=== PATIENT | male | born 1945 | race Caucasian/White ===

== ENCOUNTER 2018-02-15 17:45 | Inpatient (IN) ==
--- NOTE | 2018-02-15 17:57 | Emergency Department Note ---
Disposition Clinical Impression: Small bowel obstruction Disposition: Admitted As Inpatient Condition: Good [facility]: [facility] [Primary Care Provider[facility] - Nausea/Vomiting/Diarrhea HPI - General Stated complaint: small bowel obstruction - History of Present Illness HPI Narrative: 72 yo M c PMHx of CKD stage 3, Umbilical hernia, a fib on apixaban, HTN, HLD, CHF, Obesity who reports to the ED in transfer from [facility] for Small bowel obstruction. Patient reports symptoms began Thursday night while eating out at [employer]. He reports Nausea, chills, vomiting, and diarrhea. He reports a few episodes of emesis thursday night into thursday, but none since. He reports several episodes of diarrhea since then and presented to the [place] hospital this morning for evaluation. He was worked up with blood work which was unremarkable : Normal WBC, LFTs, lipase, amylase, BMP except Cr which is 1.47( baseline unknown, but has ckd) CT abdpalvis showed: "There are dilated small bowel loops throughout the abdomen with a possible transition point in the right anterior abdomen. The distal small bowel and coln are relatively collapsed. The appendix is normal in appearance." Patient was accepted by Dr. Gray for Transfer at 10:30 am but then [place] attempted to place him at another [place] instead, but were ultimatley unsuccesful, so now is here for admission and surgical evaluation. They attempted [address] an NG tube at the [place] but they were unsuccessful. Patient denies Abdominal pain throughout this episode. He reports he currently has no pain, no nausea, no fevers or chill. He denies hematochezia, or melena. He describes the diarrhea as watery. Pt Subjective Complaint: diarrhea - Related Data Home Medications Medication Instructions Recorded Confirmed Amiodarone [Cordarone] 200 mg PO DAILY 02/15/18 02/15/18 Apixaban [Eliquis] 5 mg PO BID 02/15/18 02/15/18 Aspirin [Lo-Dose Aspirin EC] 81 mg PO DAILY 02/15/18 02/15/18 Fluticasone Propionate Nasal 1 spr NS DAILY 02/15/18 02/15/18 [Flonase] Furosemide [Lasix] 60 mg PO DAILY 02/15/18 02/15/18 Losartan [Cozaar] 25 mg PO DAILY 02/15/18 02/15/18 Metoprolol Succinate [Toprol Xl] 25 mg PO DAILY 02/15/18 02/15/18 Pravastatin Sodium [Pravachol] 20 mg PO QPM 02/15/18 02/15/18 Allergies Allergy/AdvReac Type Severity Reaction Status Date / Time No Known Allergies Allergy Verified 02/15/18 18:02 Review of Systems: As Per HPI Physical Exam - General Limitations: no limitations General appearance: alert, in no apparent distress - Head Head exam: atraumatic, normocephalic - ENT ENT exam: normal oropharynx, mucous membranes moist - Neck Neck exam: Present: full ROM, trachea midline - Chest Chest inspection: Present: symmetric chest wall rise. Absent: tenderness - Respiratory Respiratory exam: Present: normal lung sounds bilaterally. Absent: respiratory distress - Cardiovascular Cardiovascular exam: Present: regular rate, normal rhythm - Abdominal Exam Abdominal exam: Present: soft, Non-Tender, distention, normal bowel sounds, hernia (umbilical, chronic) - Extremities Exam Extremities exam: Absent: tenderness, pedal edema - Neurological Exam Neurological exam: Present: alert, oriented X3 - Psychiatric Psychiatric exam: Present: normal affect, normal mood - Skin Skin exam: Present: warm, dry Course Course Narrative: Patient transferred for admission and surgical evaluation. Work up already completed at [place]. Will admit to hospitalist. - Consultations Consultation #1: Discussed case with Dr. Vo of Surgery who agreed to see the patient in consult after they are admitted to hospitalist. Vital Signs Temperature 97.7 F 02/15/18 18:02 Pulse Rate 59 02/15/18 18:02 Respiratory Rate 14 02/15/18 18:02 Blood Pressure 118/67 02/15/18 18:02 O2 Sat by Pulse Oximetry 97 02/15/18 18:02 Temperature 97.7 F 02/15/18 18:02 Pulse Rate 59 02/15/18 18:02 Respiratory Rate 14 02/15/18 18:02 Blood Pressure 118/67 02/15/18 18:02 O2 Sat by Pulse Oximetry 97 02/15/18 18:02 Oxygen Delivery Oxygen Delivery Room Air Nausea/Vomiting/Diarrhea - MDM Narrative Medical decision making narrative: CT at [place] shows SBO. Based on patient's symtoms likely partial obstruction as still having diarrhea and passing flatus. Will keep NPO.
--- NOTE | 2018-02-15 18:37 | Emergency Department Note ---
Disposition Clinical Impression: Small bowel obstruction Disposition: Admitted As Inpatient Condition: Good [facility]errals: [facility] [Primary Care Provider] - General Adult HPI - General Chief complaint: ED Nausea/Vomiting/Diarrhea Stated complaint: small bowel obstruction Source: EMS Limitations: no limitations - History of Present Illness Pain Scale: 4 - Related Data Allergies Allergy/AdvReac Type Severity Reaction Status Date / Time No Known Allergies Allergy Verified 02/15/18 18:02 Past Medical History - Past Medical History Medical history: Reports: atrial fibrillation, CHF, hyperlipidemia, hypertension , renal disease Psychiatric history: Reports: no psych history - Social History Smoking Status: Never smoker Smokeless Tobacco Status: No Alcohol use: Reports: none Drug use: Reports: none Physical Exam - General Limitations: no limitations General appearance: alert, in no apparent distress Course - Reevaluation(s) Reevaluation #1: Attestation Note I examined this patient and my medical decision-making was reviewed with the Resident Physician, CHRIS RIVAS. I agree with the documented findings, disposition and treatment plan as described except to the extent set forth below. I have personally performed a face to face evaluation on this patient. I have reviewed and agree with the care plan. Briefly: 72-year-old male transferred from the [facility] to the [facility] with the diagnosis of small bowel obstruction. Patient was in no prior history of abdominal surgery since 4 days been feeling some distention decreased appetite and some cramping was extensively worked up the [facility] including CT scan and labs. CT scan shows acute small bowel obstruction with possible transition point and decompressed distal colon. Patient appears comfortable at this time is getting IV fluids and antiemetics. We will consult Gen. surgery and then we will admit to the hospitalist. Admission disposition pending Time: 18:35 Vital Signs Temperature 97.7 F 02/15/18 18:02 Pulse Rate 59 02/15/18 18:02 Respiratory Rate 14 02/15/18 18:02 Blood Pressure 118/67 02/15/18 18:02 O2 Sat by Pulse Oximetry 97 02/15/18 18:02 Temperature 97.7 F 02/15/18 18:02 Pulse Rate 59 02/15/18 18:02 Respiratory Rate 14 02/15/18 18:02 Blood Pressure 118/67 02/15/18 18:02 O2 Sat by Pulse Oximetry 97 02/15/18 18:02 Oxygen Delivery Oxygen Delivery Room Air
[2018-02-16] MEDS ORDERED: Naloxone 0.4 MG/ML INJ IVP PRN (08:36)
[2018-02-16] MEDS ORDERED: *HR* Promethazine 25 MG/ML VIAL IVP PRN (08:40)
--- NOTE | 2018-02-16 09:02 | Internal Med History&Physical ---
Date of Encounter: 02/16/18 Time of Encounter: 08:59 Internal Medicine - H&P: HPI Chief complaint: Nausea, vomiting and diarrhea Admitted From: Emergency Dept Plans for Post Hospital Care: Home History of present illness: Mr. Merchant is a 72 year old male patient with history of atrial fibrillation, hypertension, hyperlipidemia, chronic kidney disease stage III who was hospitalized here after presenting to the [facility] complains of some Jason after he ate a hamburger. In the ER at the [facility] he was evaluated with a CT scan of his abdomen and pelvis which was concerning for small bowel obstruction. As such was transferred here. Since coming in here, his symptoms have slowly improved. He has been nothing by mouth overnight. He no longer has any abdominal pain. No new episodes of nausea or vomiting. His last episode of diarrhea was last evening. Denies any chest pain or shortness of breath. No hematemesis or melena. Past Med Surg Social Fam HX - Past Medical History Attestation: Yes The following information was validated with the patient. Source: patient Medical history: atrial fibrillation, CHF, hyperlipidemia, hypertension, renal disease Psychiatric history: no psych history - Social History Smoking Status: Never smoker Smokeless Tobacco Status: No Alcohol use: none Drug use: none - Family History Mother Adopted: No Family Member Ethnicity: Non- Living Status: Age at : 82 Cause of : Cancer Hx Family Cardiac Disorders: Yes Hx Family Respiratory Disorders: No Hx Family Cancer: Yes Hx Family GI Disorders: No Hx Family Genitourinary Disorders: No Hx Family Endocrine Disorder: No Hx Family Musculoskeletal Disorders: No Hx Family Neuromuscular Disorders: No Hx Family Neurologic Disorders: No Hx Family HEENT Disorders: No Hx Family Autoimmune Disorders: No Hx Family Reproductive Disorders: No Hx Family Psychosocial Disorders: No Hx Family Medical Disorders: No - Additional Family History Additional family history: Reviewed with patient and found to be noncontributory at this time Internal Medicine - H&P: Meds Amiodarone [Cordarone] 200 mg PO DAILY 02/15/18 [History] Apixaban [Eliquis] 5 mg PO BID 02/15/18 [History] Aspirin [Lo-Dose Aspirin EC] 81 mg PO DAILY 02/15/18 [History] Fluticasone Propionate Nasal [Flonase] 1 spr NS DAILY 02/15/18 [History] Furosemide [Lasix] 60 mg PO DAILY 02/15/18 [History] Losartan [Cozaar] 25 mg PO DAILY 02/15/18 [History] Metoprolol Succinate [Toprol Xl] 25 mg PO DAILY 02/15/18 [History] Pravastatin Sodium [Pravachol] 20 mg PO QPM 02/15/18 [History] 3 Allergy/AdvReac Type Severity Reaction Status Date / Time No Known Allergies Allergy Verified 02/15/18 18:02 All Systems PM: A 10-system review of systems was performed and is negative for pertinent findings except as documented above in the HPI. - Constitutional Constitutional: no chills, no fever(s), no night sweats - EENT Eyes: no change in vision, no discharge, no pain, no photophobia Ears: no ear discharge, no ear pain, no tinnitus Nose, mouth and throat: no dysphagia, no nasal discharge, no neck pain, no sore throat - Cardiovascular Cardiovascular ROS IM: no chest pain, no diaphoresis, no dyspnea, no lightheadedness, no palpitations, no syncope - Respiratory Respiratory: no cough, no dyspnea, no wheezing, no excessive phlegm production - Gastrointestinal Gastrointestinal: diarrhea, nausea, vomiting, no abdominal pain, no hematemesis , no hematochezia, no melena - Musculoskeletal Musculoskeletal ROS IM: no numbness, no tingling - Integumentary Integumentary IM: no rash, no unusual bruising - Neurological Neurological ROS: no confusion, no convulsions, no focal weakness, no numbness, no tingling, no tremor(s) - Constitutional Vitals: Temp Pulse Resp BP Pulse Ox 97.8 F 57 18 116/67 99 02/16/18 06:45 02/16/18 06:45 02/16/18 06:45 02/16/18 06:45 02/16/18 06:45 General appearance: Present: cooperative, A&O X 3, obese, answers questions appropriately - Neck Neck exam general surgery: Present: supple, trachea midline. Absent: lymphadenopathy - Respiratory Respiratory exam: Present: CTAB. Absent: accessory muscle use, rales, rhonchi, wheezes - Cardiovascular Cardiovascular exam: Present: RRR, +S1, +S2. Absent: diastolic murmur, gallop, rubs, systolic murmur - GI/Abdominal GI/Abdominal exam: Present: normal bowel sounds, soft, no peritoneal signs. Absent: distended, tenderness - Extremities Exam Extremities exam: Present: warm, radial pulses palpable and symmetrical. Absent : calf tenderness, cyanotic, pedal edema - Neurological Exam Neurological exam: Present: CN II-XII intact, oriented X3, no focal deficits. Absent: facial droop, speech deficit - Skin Skin exam: Present: dry, intact Internal Med - H&P Results - Labs Labs: Labs from [facility] show a WBC is 3.4, hemoglobin 12.8, sodium 136, potassium 3.4 BUN 19, creatinine 1.47 - Impressions CT scan of the abdomen and pelvis done at the [place] shows distal small bowel obstruction. - Assessment and plan (1) Small bowel obstruction Current Visit: Yes Status: Acute Assessment and plan: Patient with acute small bowel obstruction. Keep nothing by mouth. Will get KUB. Consult surgery. NG tube was attempted to [facility] but unsuccessful. Patient is currently not having episodes of emesis. We will hold off on re-up attempting NG tube placement at this time. IV fluids. Control nausea with antiemetics. Moderate risk for complications. (2) Chronic kidney disease, stage III (moderate) Current Visit: Yes Status: Chronic Assessment and plan: Monitor renal function closely. (3) Hypertension Current Visit: Yes Status: Chronic Assessment and plan: Blood pressure is well controlled. Will resume home medications when patient was able to take oral meds. In the meantime monitor blood pressure and use intravenous medications as needed to control blood pressure Qualifiers: Hypertension type: essential hypertension Qualified Code(s): I10 - Essential (primary) hypertension (4) Hyperlipidemia Current Visit: Yes Status: Chronic Assessment and plan: Continue home medications and patient is able to take oral meds Qualifiers: Hyperlipidemia type: mixed hyperlipidemia Qualified Code(s): E78.2 - Mixed hyperlipidemia (5) Atrial fibrillation Current Visit: Yes Status: Chronic Assessment and plan: In regular rhythm currently. Rate controlled. On Eliquis and amiodarone. Resume amiodarone when patient able to tolerate oral diet. Hold eliquis for now in case patient needs surgery. Qualifiers: Atrial fibrillation type: paroxysmal Qualified Code(s): I48.0 - Paroxysmal atrial fibrillation - Time Spent With Patient Total time spent is greater than 50% in coordination of care (as documented) at patient's floor/unit and/or counseling patient:
[2018-02-16 09:04] LABS: Basophils % 0.4 %; Eosinophils # 0.1 K/mcL (0.0-0.6); Eosinophils % 1.3 %; Hematocrit 37.8 % (37.5-50.1); Hemoglobin 12.2 g/dL (12.9-16.9); Immature Granulocytes % 0.4 % (0-4); Lymphocytes % 19.8 %; Mean Corpuscular HGB Conc 32.3 g/dL (31.6-35.5); Mean Corpuscular Hemoglobin 25.8 pg (28.0-33.3); Mean Corpuscular Volume 80.1 fL (83.0-100.0); Mean Platelet Volume 9.4 fL (9.4-12.4); Monocytes # 0.5 K/mcL (0.0-1.3); Monocytes % 10.8 %; Neutrophils # 3.2 K/mcL (1.6-8.9); Platelet Count 220 K/mcL (140-400); Red Blood Count 4.72 M/mcL (4.19-5.50); Red Cell Distribution Width 15.1 % (11.5-14.5); Segmented Neutrophils % 67.3 %
[2018-02-16 09:20] LABS: BUN/Creatinine Ratio 15 (6-26); Blood Urea Nitrogen 18 mg/dL (8-23); Calcium 8.3 mg/dL (8.6-10.3); Carbon Dioxide 22 mEq/L (23-29); Chloride 109 mEq/L (98-107); Glucose 83 mg/dL (70-105); Osmolality,Calculated 289 (280-300); Potassium 3.7 mEq/L (3.5-5.1); Sodium 139 mEq/L (136-145); eGFR For African Americans > 60 (> 60); eGFR For Non-African Americans 57 (> 60)
[2018-02-16] MEDS: Ringers Solution, Lactated 1,000 ML IVC SCH ×2 (09:27→18:31)
--- NOTE | 2018-02-16 10:25 | General Surgery Consult Note ---
<Robbie Castorena - Last Filed: 02/16/18 10:50> Date of Encounter: 02/16/18 Time of Encounter: 06:45 Assessment and Plan (2) Nausea vomiting and diarrhea Status: Acute CT of abd/pelvis reports findings consistent with a distal small bowel obstruction. On exam, patient has no abdominal tenderness, a reducible umbilical hernia, and normal bowel sounds. Patient has also been having diarrhea with last BM being yesterday. No nausea or vomiting as of now Surgery will continue to follow. - IV fluidis - Slowly advance diet - Serial abdominal exams History of Present Illness Consult date: 02/16/18 Requesting physician: Shantanu Ewing History of present illness: 72 yo M with a PMH of CKD stage 3, umbilical hernia, a-fib (on apixaban), HTN, HLD, CHF, obesity who reports to the ED in transfer from [facility] for diarrhea. Patient reports symptoms began 5 days ago. He reports and nausea vomiting, and diarrhea. Denies any melena or hematochezia. He reports a few episodes of emesis the first two days, but none since. Denies any hematemesis. He reports several episodes of diarrhea since then and presented to the [place] hospital yesterday morning for evaluation. Labs showed normal WBC, LFTs, lipase , amylase, BMP except creatinine which was 1.47( baseline unknown, but has CKD) . CT of the abdomen/pelvis performed at the [place] reports findings "consistent with a distal small bowel obstruction with a suspected transition point in the right anterior abdomen." Last bowel movement reported by patient was yesterday. He reports the [place] tried to put an NG tube but were unsuccessful. Patient denies any abdominal pain. No nausea or vomiting as of now. He denies any fever, chest , or shortness of breath. Past Med Surg Social Fam HX - Past Medical History Medical history: atrial fibrillation, CHF, hyperlipidemia, hypertension, renal disease Psychiatric history: no psych history - Social History Smoking Status: Never smoker Smokeless Tobacco Status: No Alcohol use: none Drug use: none - Family History Mother Adopted: No Family Member Ethnicity: Non- Living Status: Age at : 82 Cause of : Cancer Hx Family Cardiac Disorders: Yes Hx Family Respiratory Disorders: No Hx Family Cancer: Yes Hx Family GI Disorders: No Hx Family Genitourinary Disorders: No Hx Family Endocrine Disorder: No Hx Family Musculoskeletal Disorders: No Hx Family Neuromuscular Disorders: No Hx Family Neurologic Disorders: No Hx Family HEENT Disorders: No Hx Family Autoimmune Disorders: No Hx Family Reproductive Disorders: No Hx Family Psychosocial Disorders: No Hx Family Medical Disorders: No Medications and Allergies Amiodarone [Cordarone] 200 mg PO DAILY 02/15/18 [History] Apixaban [Eliquis] 5 mg PO BID 02/15/18 [History] Aspirin [Lo-Dose Aspirin EC] 81 mg PO DAILY 02/15/18 [History] Fluticasone Propionate Nasal [Flonase] 1 spr NS DAILY 02/15/18 [History] Furosemide [Lasix] 60 mg PO DAILY 02/15/18 [History] Losartan [Cozaar] 25 mg PO DAILY 02/15/18 [History] Metoprolol Succinate [Toprol Xl] 25 mg PO DAILY 02/15/18 [History] Pravastatin Sodium [Pravachol] 20 mg PO QPM 02/15/18 [History] 3 Allergy/AdvReac Type Severity Reaction Status Date / Time No Known Allergies Allergy Verified 02/15/18 18:02 Review of Systems All systems PM: The remainder of the systems were reviewed and are negative - Constitutional no fever(s) - Cardiovascular no chest pain, no dyspnea - Gastrointestinal diarrhea, nausea, vomiting, no abdominal pain, no constipation, no hematemesis, no hematochezia, no melena General Surgery Exam Initial Vital Signs Temp Pulse Resp BP Pulse Ox 97.7 F 59 14 118/67 97 02/15/18 18:02 02/15/18 18:02 02/15/18 18:02 02/15/18 18:02 02/15/18 18:02 - General physical appearance well developed, well nourished, no distress, obese - Respiratory normal expansion, normal respiratory effort, clear to percussion, clear to auscultation - Cardiovascular Cardiovascular exam: Present: RRR, 15, 16 - Expanded Cardiovascular Exam Peripheral pulses: 2+: Radial (L), Radial (R), Posterior Tibialis (L), Posterior Tibialis (R), Dorsalis Pedis (L) PM, Dorsalis Pedis (R) PM - Abdomen Abdomen general surgery: Present: bowel sounds present, soft, non tender. Absent: guarding, rebound Hernia: Present: reducible, umbilical - Psychiatric Psychiatric general surgery: Present: A&Ox3, appropriate, speech is normal - Additional Findings Normal bowel sounds present. Exam Initial Vital Signs Temp Pulse Resp BP Pulse Ox 97.7 F 59 14 118/67 97 02/15/18 18:02 02/15/18 18:02 02/15/18 18:02 02/15/18 18:02 02/15/18 18:02 Results - Labs 02/16/18 08:51 02/16/18 08:51 Abnormal lab results Hgb 12.2 g/dL (12.9-16.9) L 02/16/18 08:51 MCV 80.1 fL (83.0-100.0) L 02/16/18 08:51 MCH 25.8 pg (28.0-33.3) L 02/16/18 08:51 RDW 15.1 % (11.5-14.5) H 02/16/18 08:51 Chloride 109 mEq/L (98-107) H 02/16/18 08:51 Carbon Dioxide 22 mEq/L (23-29) L 02/16/18 08:51 Est GFR (Non-Af Amer) 57 (> 60) L 02/16/18 08:51 Calcium 8.3 mg/dL (8.6-10.3) L 02/16/18 08:51 Diabetes panel 02/16/18 Range/Units 08:51 Sodium 139 (136-145) mEq/L Potassium 3.7 (3.5-5.1) mEq/L Chloride 109 H (98-107) mEq/L Carbon Dioxide 22 L (23-29) mEq/L BUN 18 (8-23) mg/dL Creatinine 1.24 (0.70-1.30) mg/dL Glucose 83 (70-105) mg/dL Calcium 8.3 L (8.6-10.3) mg/dL Calcium panel 02/16/18 Range/Units 08:51 Calcium 8.3 L (8.6-10.3) mg/dL Pituitary panel 02/16/18 Range/Units 08:51 Sodium 139 (136-145) mEq/L Potassium 3.7 (3.5-5.1) mEq/L Chloride 109 H (98-107) mEq/L Carbon Dioxide 22 L (23-29) mEq/L BUN 18 (8-23) mg/dL Creatinine 1.24 (0.70-1.30) mg/dL Glucose 83 (70-105) mg/dL Calcium 8.3 L (8.6-10.3) mg/dL Adrenal panel 02/16/18 Range/Units 08:51 Sodium 139 (136-145) mEq/L Potassium 3.7 (3.5-5.1) mEq/L Chloride 109 H (98-107) mEq/L Carbon Dioxide 22 L (23-29) mEq/L BUN 18 (8-23) mg/dL Creatinine 1.24 (0.70-1.30) mg/dL Glucose 83 (70-105) mg/dL Calcium 8.3 L (8.6-10.3) mg/dL All other labs normal. Consult Discharge Plan - Plan Instructions: Chronic Hypertension (DC), Bowel Obstruction (GEN) [facility]errals: [facility] [Primary Care Provider] - 02/23/18 11:15 am <Jose Manuel Vo - Last Filed: 02/18/18 19:58> Date of Encounter: 02/16/18 Review of Systems All systems PM: The remainder of the systems were reviewed and are negative General Surgery Exam Initial Vital Signs Temp Pulse Resp BP Pulse Ox 97.7 F 59 14 118/67 97 02/15/18 18:02 02/15/18 18:02 02/15/18 18:02 02/15/18 18:02 02/15/18 18:02 Exam Initial Vital Signs Temp Pulse Resp BP Pulse Ox 97.7 F 59 14 118/67 97 02/15/18 18:02 02/15/18 18:02 02/15/18 18:02 02/15/18 18:02 02/15/18 18:02 Results - Labs 02/16/18 08:51 02/16/18 08:51 Abnormal lab results Hgb 12.2 g/dL (12.9-16.9) L 02/16/18 08:51 MCV 80.1 fL (83.0-100.0) L 02/16/18 08:51 MCH 25.8 pg (28.0-33.3) L 02/16/18 08:51 RDW 15.1 % (11.5-14.5) H 02/16/18 08:51 Chloride 109 mEq/L (98-107) H 02/16/18 08:51 Carbon Dioxide 22 mEq/L (23-29) L 02/16/18 08:51 Est GFR (Non-Af Amer) 57 (> 60) L 02/16/18 08:51 Calcium 8.3 mg/dL (8.6-10.3) L 02/16/18 08:51 All other labs normal. - Attending Attestation I examined this patient and my medical decision-making was reviewed with the Resident Physician. I agree with the documented findings, disposition and treatment plan as described except to the extent set forth below. The patient is seen in evaluated with resident. My initial interpretation of the patient's physical examination and radiologic films are not consistent with bowel obstruction. I would recommend dietary advancement and serial physical examinations Jose Manuel Vo MD FACS
--- NOTE | 2018-02-17 07:09 | General Surgery Progress Note ---
<Robbie Castorena - Last Filed: 02/17/18 16:00> Date of Encounter: 02/17/18 Time of Encounter: 06:20 - Assessment and Plan (1) Small bowel obstruction Status: Resolved CT of abd/pelvis reports findings consistent with a distal small bowel obstruction. On exam, patient has no abdominal tenderness, a reducible umbilical hernia, and normal bowel sounds. Patient admits to having 3 bowel movements yesterday. Currently denies any nausea or vomiting. Able to tolerate clear liquid diet. Denies any abdominal pain. - IV fluidis - Slowly advance diet - Serial abdominal exams Surgery will sign off at this point. Subjective Narrative: Patient denies any nausea or vomiting. Denies any abdominal pain. He admits to having 3 bowel movements yesterday consisting of loose stools. He denies any melena or hematochezia. Denies any fever or chills. Denies any chest pain or shortness of breath. He says he has been able to tolerate his liquid diet. Objective VITAL SIGNS: Reviewed. See [facility] GENERAL: no aparrent distress. HEENT: [Normocephalic, PER, EOMi, oropharynx pink/moist, no JVD noted.] CV: b/l rad pulses 2+, RRR, no murmurs or gallops, no JVD RESPIRATORY: CTAB without wheezes, rales, or rhonchi ABD: soft, non-tender, no rebound/guarding/rigidity, no peritoneal signs. Umbilical hernia reducible. Normal bowel sounds present. EXTREMITY: grossly normal motor function, no pedal edema, peripheral pulses 2+ b /l NEUROLOGIC EXAM: AOx3, obeys commands, no speech deficits. PSYCHIATRIC: normal mood and affect SKIN: no gross lesions, rashes, or skin changes Vital Signs - Last 8 Hours Temp Pulse Resp BP Pulse Ox 02/17/18 07:03 97.6 F 48 16 123/70 97 02/17/18 05:08 97.4 F L 59 16 93/57 96 Intake and Output 02/16/18 02/16/18 02/17/18 15:59 23:59 07:59 Intake Total 1240 / 1240 100 / 100 Balance 1240 / 1240 100 / 100 Intake: IV Fluids 1000 / 1000 Lactated Ringers 1,000 ML @ 100 1000 / 1000 mls/hr IVC .Q10H NICKIE Rx#: [id number] Oral 240 / 240 100 / 100 Other: Stool Consistency soft # Voids 1 1 # Bowel Movements 1 Weight 112.2 kg - Labs 02/16/18 08:51 02/16/18 08:51 Diabetes panel 02/16/18 Range/Units 08:51 Sodium 139 (136-145) mEq/L Potassium 3.7 (3.5-5.1) mEq/L Chloride 109 H (98-107) mEq/L Carbon Dioxide 22 L (23-29) mEq/L BUN 18 (8-23) mg/dL Creatinine 1.24 (0.70-1.30) mg/dL Glucose 83 (70-105) mg/dL Calcium 8.3 L (8.6-10.3) mg/dL Calcium panel 02/16/18 Range/Units 08:51 Calcium 8.3 L (8.6-10.3) mg/dL Pituitary panel 02/16/18 Range/Units 08:51 Sodium 139 (136-145) mEq/L Potassium 3.7 (3.5-5.1) mEq/L Chloride 109 H (98-107) mEq/L Carbon Dioxide 22 L (23-29) mEq/L BUN 18 (8-23) mg/dL Creatinine 1.24 (0.70-1.30) mg/dL Glucose 83 (70-105) mg/dL Calcium 8.3 L (8.6-10.3) mg/dL Adrenal panel 02/16/18 Range/Units 08:51 Sodium 139 (136-145) mEq/L Potassium 3.7 (3.5-5.1) mEq/L Chloride 109 H (98-107) mEq/L Carbon Dioxide 22 L (23-29) mEq/L BUN 18 (8-23) mg/dL Creatinine 1.24 (0.70-1.30) mg/dL Glucose 83 (70-105) mg/dL Calcium 8.3 L (8.6-10.3) mg/dL Consult Discharge Plan - Plan Instructions: Chronic Hypertension (DC), Bowel Obstruction (GEN) [facility]: [facility]Primary Care Provider[facility] - 02/23/18 11:15 am <Jose Manuel Vo - Last Filed: 02/18/18 20:06> Date of Encounter: 02/17/18 Objective - Labs 02/16/18 08:51 02/16/18 08:51 - Attending Attestation I examined this patient and my medical decision-making was reviewed with the Resident Physician. I agree with the documented findings, disposition and treatment plan as described except to the extent set forth below. The patient is seen and evaluated with the resident. There is really no evidence for bowel obstruction. Surgery will sign off at this point. Jose Manuel Vo MD FACS
[2018-02-17] MEDS ORDERED: Fluticasone Propionate Nasal 50 MCG/SPRAY BOTTLE NS SCH (09:00)
[2018-02-17] MEDS ORDERED: Aspirin Enteric Coated 81 MG Tablet PO SCH (09:00)
[2018-02-17] MEDS ORDERED: Metoprolol XL (24 HR) Succ 25 MG TAB.ER.24H PO SCH (09:00)
[2018-02-17] MEDS ORDERED: *HR* Amiodarone 200 MG TABLET PO SCH (09:00)
[2018-02-17] MEDS ORDERED: Furosemide 40 MG TABLET PO SCH (09:00)
[2018-02-17 11:23] VITALS: BP 144/71
--- NOTE | 2018-02-17 12:55 | Discharge Summary ---
- NOTES TO OUTPATIENT PROVIDER Notes to Outpatient Provider: Patient admitted with possible SBO. Symptoms improved by the time he came here. He has been tolerating liquid diet and is having bowel movements. Surgery evaluated him and has signed off at this time. Will be discharged home today. Date of Encounter: 02/17/18 Time of Encounter: 12:55 - Discharge Diagnosis (1) Small bowel obstruction Priority: Primary Status: Resolved (2) Chronic kidney disease, stage III (moderate) Priority: Secondary Status: Chronic (3) Hypertension Priority: Secondary Status: Chronic Qualifiers: Hypertension type: essential hypertension Qualified Code(s): I10 - Essential (primary) hypertension (4) Hyperlipidemia Priority: Secondary Status: Chronic Qualifiers: Hyperlipidemia type: mixed hyperlipidemia Qualified Code(s): E78.2 - Mixed hyperlipidemia (5) Atrial fibrillation Priority: Secondary Status: Chronic Qualifiers: Atrial fibrillation type: paroxysmal Qualified Code(s): I48.0 - Paroxysmal atrial fibrillation Hospital course: Mr. Merchant is a 72 year old male patient with multiple medical problems including chronic kidney disease, hypertension was admitted with possible SBO. He was initially seen in the [facility] and had a CT scan there. He was then transferred here for further management. Symptoms improved by the time he came here. He did not require NG tube placement here. He has been tolerating liquid diet and is having bowel movements. Surgery evaluated him and has signed off at this time. He will be discharged home today. Discharge discussed with: patient, nurse - Time Spent with Patient Total time spent providing and/or coordinating discharge services: Less than 30 minutes (25 min) - Discharge Medications Home Medications: Amiodarone [Cordarone] 200 mg PO DAILY 02/15/18 [History] Apixaban [Eliquis] 5 mg PO BID 02/15/18 [History] Aspirin [Lo-Dose Aspirin EC] 81 mg PO DAILY 02/15/18 [History] Fluticasone Propionate Nasal [Flonase] 1 spr NS DAILY 02/15/18 [History] Furosemide [Lasix] 60 mg PO DAILY 02/15/18 [History] Losartan [Cozaar] 25 mg PO DAILY 02/15/18 [History] Metoprolol Succinate [Toprol Xl] 25 mg PO DAILY 02/15/18 [History] Pravastatin Sodium [Pravachol] 20 mg PO QPM 02/15/18 [History] Allergies/Adverse Reactions: 3 Allergy/AdvReac Type Severity Reaction Status Date / Time No Known Allergies Allergy Verified 02/15/18 18:02 Date of admission: 02/15/18 20:40 Primary care physician: PCP TYREE Discharging clinician: Jalen Truong Anticipated date of discharge: 02/17/18 - Constitutional Vitals: Temp Pulse Resp BP Pulse Ox 97.7 F 56 17 144/71 96 02/17/18 10:56 02/17/18 10:56 02/17/18 10:56 02/17/18 10:56 02/17/18 10:56 General appearance: Present: cooperative, A&O X 3, obese, answers questions appropriately - Respiratory Respiratory exam: Present: CTAB. Absent: accessory muscle use, rales, rhonchi, wheezes - Cardiovascular Cardiovascular exam: Present: RRR, +S1, +S2. Absent: diastolic murmur, gallop, rubs, systolic murmur - GI/Abdominal GI/Abdominal exam: Present: normal bowel sounds, soft, no peritoneal signs. Absent: distended, tenderness - Extremities Exam Extremities exam: Present: warm, radial pulses palpable and symmetrical. Absent : calf tenderness, cyanotic, pedal edema - Patient Status Disposition: Home, Self-Care Condition: Good Functional capacity at discharge: independent ambulation Overall status at discharge: patient is back to baseline - Discharge Instructions Instructions: Chronic Hypertension (DC), Bowel Obstruction (GEN) Follow Up With: TY[facility],PCP [Primary Care Provider] - 02/23/18 11:15 am Forms: ED Satisfaction Letter - Diet and Activity Activity: increase activity as tolerated Diet: advance to your usual diet (liquid diet and advance slowly to cardiac diet )
== END 2018-02-17 17:50 | disposition home or self-care (01) | DRG 389 ==
LOC: EMEROO 17:45 → 3NENU 20:40 → SUATTDRO 20:40 → 3NENU 21:13 → 3BNU 02-17 07:46
PROVIDERS: ADMIT Internal Medicine; ATTEND Internal Medicine

== ENCOUNTER 2020-08-19 14:00 | Inpatient (IN) ==
[2020-08-19] MEDS ORDERED: 0.9 % Sodium Chloride 500 ML IVC ONE ×2 (14:17→15:31)
[2020-08-19 14:43] LABS: Basophils % 0.4 %; Hematocrit 33.7 % (37.5-50.1); Hemoglobin 10.2 g/dL (12.9-16.9); Immature Granulocytes % 0.7 % (0-4); Lymphocytes # 0.8 K/mcL (0.6-4.6); Lymphocytes % 8.3 %; Mean Corpuscular HGB Conc 30.3 g/dL (31.6-35.5); Mean Corpuscular Hemoglobin 23.2 pg (28.0-33.3); Mean Corpuscular Volume 76.8 fL (83.0-100.0); Mean Platelet Volume 9.8 fL (9.4-12.4); Monocytes # 1.3 K/mcL (0.0-1.3); Monocytes % 13.2 %; Neutrophils # 7.9 K/mcL (1.6-8.9); Platelet Count 262 K/mcL (140-400); Red Blood Count 4.39 M/mcL (4.19-5.50); Red Cell Distribution Width 19.4 % (11.5-14.5); Segmented Neutrophils % 77.4 %; White Blood Count 10.2 K/mcL (4.3-11.1)
[2020-08-19 15:14] LABS: Bacteria,Urine Few per hpf (None-Few); Bilirubin,Urine Negative (Negative); Blood,Urine Small (Negative); Clarity,Urine Ex.Turbid (Clear); Color,Urine Yellow (Yellow); Glucose,Urine (UA) Normal (Normal); Hyaline Casts,Urine Many per lpf (None Seen); Ketones,Urine Negative (Negative); Leukocyte Esterase,Urine Large (Negative); Nitrite,Urine Negative (Negative); Protein,Urine 30 mg/dL (Neg-Trace); Specific Gravity,Urine 1.013 (1.010-1.025); Squamous Epithelial Cell,Urine Few per hpf (None-Few); Urobilinogen,Urine Normal (Normal); WBC,Urine TNTC per hpf (0-3)
[2020-08-19 15:23] LABS: Albumin/Globulin Ratio 1.3 (1.1-2.2); Bilirubin,Total 1.2 mg/dL (0.3-1.0); Calcium 8.8 mg/dL (8.6-10.3); Magnesium 2.4 mg/dL (1.6-2.6); Phosphorous 3.2 mg/dL (2.7-4.5); Thyroid Stimulating Hormone 6.987 mcIU/mL (0.340-5.600); Troponin I 0.05 ng/mL (< 0.04)
[2020-08-19] MEDS ORDERED: Aspirin 81 MG TAB.CHEW PO ONE (15:31)
[2020-08-19] MEDS ORDERED: Potassium Chloride Elixir 20 MEQ/15 ML UDC PO ONE (15:31)
[2020-08-19] MEDS ORDERED: cefTRIAXone 1,000 MG in Water for inj. (sterile) 10 ML IVP ONE (15:37)
[2020-08-19] MEDS ORDERED: Ondansetron 4 MG/2 ML VIAL IVP ONE (15:52)
[2020-08-19] MEDS ORDERED: Ondansetron 4 MG/2 ML VIAL ONE (15:53)
[2020-08-19] MEDS ORDERED: 0.9 % Sodium Chloride 1,000 ML IVC ONE (16:57)
[2020-08-19] MEDS ORDERED: methylPREDNISolone 125 MG/2 ML VIAL IVP ONE (17:19)
[2020-08-19] MEDS ORDERED: 0.9 % Sodium Chloride 1,000 ML IVC SCH (18:15)
[2020-08-19] MEDS ORDERED: Naloxone 0.4 MG/ML INJ IVP PRN (19:34)
[2020-08-19] MEDS ORDERED: Ringers Solution, Lactated 1,000 ML IVC SCH (22:30)
[2020-08-19] MEDS: Ipratropium 1 PUFF INHALER IH SCH (23:32)
[2020-08-19 23:35] LABS: Troponin I 0.03 ng/mL (< 0.04)
[2020-08-19 23:50] LABS: Folate > 22.3 ng/mL (3.0-16.0); Vitamin B12 272 pg/mL (250-1100)
[2020-08-20] MEDS: Apixaban 5 MG TABLET PO SCH ×3 (00:39→21:17)
[2020-08-20 01:08] LABS: Calcium 7.7 mg/dL (8.6-10.3); Potassium 3.1 mEq/L (3.5-5.1)
[2020-08-20] MEDS: Ipratropium 1 PUFF INHALER IH SCH ×4 (03:22→22:03)
[2020-08-20 05:43] LABS: Basophils % 0.2 %; Hematocrit 32.5 % (37.5-50.1); Hemoglobin 9.6 g/dL (12.9-16.9); Lymphocytes # 0.4 K/mcL (0.6-4.6); Lymphocytes % 9.7 %; Mean Corpuscular HGB Conc 29.5 g/dL (31.6-35.5); Mean Corpuscular Hemoglobin 23.7 pg (28.0-33.3); Mean Corpuscular Volume 80.2 fL (83.0-100.0); Mean Platelet Volume 9.9 fL (9.4-12.4); Monocytes # 0.1 K/mcL (0.0-1.3); Monocytes % 3.2 %; Neutrophils # 3.5 K/mcL (1.6-8.9); Platelet Count 227 K/mcL (140-400); Red Blood Count 4.05 M/mcL (4.19-5.50); Red Cell Distribution Width 19.7 % (11.5-14.5); Segmented Neutrophils % 85.9 %; White Blood Count 4.1 K/mcL (4.3-11.1)
[2020-08-20] MEDS ORDERED: Doxycycline 100 MG in 0.9 % Sodium Chloride Mini Bag 100 ML IVPB SCH (06:00)
[2020-08-20 06:29] LABS: Hypochromasia Present (Not Present); Platelet Estimate Normal (Normal)
[2020-08-20] MEDS ORDERED: Cefepime HCl 2,000 MG in 0.9 % Sodium Chloride Mini Bag 100 ML IVPB SCH (08:00)
[2020-08-20] MEDS ORDERED: Bumetanide 1 MG TABLET PO SCH (08:00)
[2020-08-20] MEDS: allopurinoL 100 MG TABLET PO SCH (08:40)
[2020-08-20] MEDS: Aspirin Enteric Coated 81 MG Tablet PO SCH (08:40)
[2020-08-20] MEDS: Fluticasone Propionate Nasal 50 MCG/SPRAY BOTTLE NS SCH (08:45)
[2020-08-20] MEDS ORDERED: Metoprolol XL (24 HR) Succ 25 MG TAB.ER.24H PO SCH ×2 (09:00→19:03)
[2020-08-20] MEDS ORDERED: cefTRIAXone 1,000 MG in Water for inj. (sterile) 10 ML IVP SCH (09:00)
[2020-08-20] MEDS ORDERED: metOLazone 2.5 MG TABLET PO SCH (09:00)
[2020-08-20] MEDS: Budesonide/Formoterol 160/4.5 1 PUFF INH IH SCH ×2 (11:03→22:02)
[2020-08-20] MEDS ORDERED: Perflutren Lipid Microsphere 1.3 ML in 0.9 % Sodium Chloride 8.7 ML IVP PRN (15:13)
[2020-08-20] MEDS: cefTRIAXone 1,000 MG in Water for inj. (sterile) 10 ML IVP SCH (15:52)
[2020-08-20] MEDS ORDERED: traZODone 50 MG TABLET PO SCH (21:00)
[2020-08-21] MEDS: Ipratropium 1 PUFF INHALER IH SCH ×4 (03:53→21:46)
[2020-08-21 05:41] LABS: Basophils % 0.2 %; Hematocrit 30.6 % (37.5-50.1); Immature Granulocytes % 0.6 % (0-4); Lymphocytes # 0.9 K/mcL (0.6-4.6); Lymphocytes % 8.8 %; Mean Corpuscular HGB Conc 29.4 g/dL (31.6-35.5); Mean Corpuscular Hemoglobin 23.4 pg (28.0-33.3); Mean Corpuscular Volume 79.7 fL (83.0-100.0); Mean Platelet Volume 9.5 fL (9.4-12.4); Monocytes # 0.9 K/mcL (0.0-1.3); Monocytes % 8.7 %; Neutrophils # 8.3 K/mcL (1.6-8.9); Platelet Count 225 K/mcL (140-400); Red Blood Count 3.84 M/mcL (4.19-5.50); Red Cell Distribution Width 19.3 % (11.5-14.5); Segmented Neutrophils % 81.7 %
[2020-08-21 05:43] LABS: White Blood Count 10.2 K/mcL (4.3-11.1)
[2020-08-21 06:04] LABS: Calcium 8.2 mg/dL (8.6-10.3); Magnesium 2.4 mg/dL (1.6-2.6); Potassium 3.1 mEq/L (3.5-5.1)
[2020-08-21] MEDS ORDERED: Albumin 25% 25gram/100mL 25 GM/100 ML IV.SOLN IVPB ONE (07:19)
[2020-08-21] MEDS: Metoprolol XL (24 HR) Succ 25 MG TAB.ER.24H PO SCH (07:55)
[2020-08-21] MEDS: Aspirin Enteric Coated 81 MG Tablet PO SCH (08:10)
[2020-08-21] MEDS: allopurinoL 100 MG TABLET PO SCH (08:10)
[2020-08-21] MEDS: Apixaban 5 MG TABLET PO SCH ×2 (08:11→20:27)
[2020-08-21] MEDS: Budesonide/Formoterol 160/4.5 1 PUFF INH IH SCH ×2 (10:14→21:45)
[2020-08-21] MEDS: Fluticasone Propionate Nasal 50 MCG/SPRAY BOTTLE NS SCH (11:04)
[2020-08-21] MEDS: Sennosides 8.6 MG TABLET PO PRN (11:04)
[2020-08-21] MEDS: cefTRIAXone 1,000 MG in Water for inj. (sterile) 10 ML IVP SCH (15:10)
[2020-08-21] MEDS ORDERED: methylPREDNISolone 125 MG/2 ML VIAL IVP ONE (18:55)
[2020-08-21] MEDS ORDERED: methylPREDNISolone 125 MG/2 ML VIAL ONE (19:03)
[2020-08-21] MEDS: Acetaminophen 325 MG TABLET PO PRN (19:05)
[2020-08-21] MEDS: traZODone 50 MG TABLET PO SCH (20:28)
[2020-08-22 01:27] LABS: Basophils % 0.1 %; Hematocrit 31.6 % (37.5-50.1); Hemoglobin 9.3 g/dL (12.9-16.9); Immature Granulocytes % 0.6 % (0-4); Lymphocytes # 0.2 K/mcL (0.6-4.6); Lymphocytes % 1.7 %; Mean Corpuscular HGB Conc 29.4 g/dL (31.6-35.5); Mean Corpuscular Hemoglobin 23.2 pg (28.0-33.3); Mean Corpuscular Volume 78.8 fL (83.0-100.0); Mean Platelet Volume 9.8 fL (9.4-12.4); Monocytes # 0.2 K/mcL (0.0-1.3); Monocytes % 1.6 %; Neutrophils # 9.1 K/mcL (1.6-8.9); Platelet Count 241 K/mcL (140-400); Red Blood Count 4.01 M/mcL (4.19-5.50); Red Cell Distribution Width 19.4 % (11.5-14.5); White Blood Count 9.5 K/mcL (4.3-11.1)
[2020-08-22 01:41] LABS: Anisocytosis 2+ (Not Present); Microcytosis Present (Not Present); Platelet Estimate Normal (Normal)
[2020-08-22 01:48] LABS: Calcium 8.3 mg/dL (8.6-10.3); Magnesium 2.5 mg/dL (1.6-2.6); Phosphorous 3.3 mg/dL (2.7-4.5); Potassium 4.1 mEq/L (3.5-5.1)
[2020-08-22] MEDS: Ipratropium 1 PUFF INHALER IH SCH ×4 (03:34→22:32)
[2020-08-22] MEDS: MethylPREDNISolone 40 MG/ML VIAL IVP SCH ×2 (05:43→16:34)
[2020-08-22] MEDS: Metoprolol XL (24 HR) Succ 25 MG TAB.ER.24H PO SCH (07:21)
[2020-08-22] MEDS: Aspirin Enteric Coated 81 MG Tablet PO SCH (07:32)
[2020-08-22] MEDS: Apixaban 5 MG TABLET PO SCH ×2 (07:32→20:44)
[2020-08-22] MEDS: allopurinoL 100 MG TABLET PO SCH (07:32)
[2020-08-22] MEDS: Fluticasone Propionate Nasal 50 MCG/SPRAY BOTTLE NS SCH (07:33)
[2020-08-22] MEDS: Sennosides 8.6 MG TABLET PO PRN (07:40)
[2020-08-22] MEDS: Budesonide/Formoterol 160/4.5 1 PUFF INH IH SCH ×2 (12:11→22:32)
[2020-08-22] MEDS: cefTRIAXone 1,000 MG in Water for inj. (sterile) 10 ML IVP SCH (14:35)
[2020-08-22] MEDS: Bumetanide 1 MG/4 ML VIAL IVP SCH (16:13)
[2020-08-22] MEDS: Albumin 25% 25gram/100mL 25 GM/100 ML IV.SOLN IVPB SCH ×2 (16:30→23:11)
[2020-08-22] MEDS: traZODone 50 MG TABLET PO SCH (20:44)
[2020-08-23] MEDS ORDERED: Benzonatate 100 MG CAPSULE PO PRN (00:36)
[2020-08-23 01:52] LABS: Hemoglobin 9.1 g/dL (12.9-16.9); Immature Granulocytes % 0.7 % (0-4); Monocytes % 7.6 %
[2020-08-23 01:53] LABS: Hematocrit 31.7 % (37.5-50.1); Lymphocytes # 0.3 K/mcL (0.6-4.6); Lymphocytes % 3.3 %; Mean Corpuscular HGB Conc 28.7 g/dL (31.6-35.5); Mean Corpuscular Hemoglobin 23.3 pg (28.0-33.3); Mean Corpuscular Volume 81.1 fL (83.0-100.0); Mean Platelet Volume 9.8 fL (9.4-12.4); Monocytes # 0.6 K/mcL (0.0-1.3); Platelet Count 217 K/mcL (140-400); Red Blood Count 3.91 M/mcL (4.19-5.50); Red Cell Distribution Width 19.5 % (11.5-14.5); Segmented Neutrophils % 88.4 %; White Blood Count 7.5 K/mcL (4.3-11.1)
[2020-08-23 01:57] LABS: Neutrophils # 6.6 K/mcL (1.6-8.9)
[2020-08-23 02:09] LABS: Calcium 8.8 mg/dL (8.6-10.3); Magnesium 2.5 mg/dL (1.6-2.6); Potassium 4.2 mEq/L (3.5-5.1)
[2020-08-23 02:53] LABS: Hypochromasia Present (Not Present); Platelet Estimate Normal (Normal)
[2020-08-23] MEDS: Ipratropium 1 PUFF INHALER IH SCH ×4 (04:01→22:48)
[2020-08-23] MEDS: MethylPREDNISolone 40 MG/ML VIAL IVP SCH ×2 (05:17→18:49)
[2020-08-23] MEDS: Metoprolol XL (24 HR) Succ 25 MG TAB.ER.24H PO SCH (09:14)
[2020-08-23] MEDS: Apixaban 5 MG TABLET PO SCH ×2 (09:14→19:53)
[2020-08-23] MEDS: Aspirin Enteric Coated 81 MG Tablet PO SCH (09:14)
[2020-08-23] MEDS: Acetaminophen 325 MG TABLET PO PRN (09:14)
[2020-08-23] MEDS: Bumetanide 1 MG/4 ML VIAL IVP SCH (09:15)
[2020-08-23] MEDS: Albumin 25% 25gram/100mL 25 GM/100 ML IV.SOLN IVPB SCH (09:15)
[2020-08-23] MEDS: allopurinoL 100 MG TABLET PO SCH (09:15)
[2020-08-23] MEDS: Fluticasone Propionate Nasal 50 MCG/SPRAY BOTTLE NS SCH (09:15)
[2020-08-23] MEDS: Budesonide/Formoterol 160/4.5 1 PUFF INH IH SCH ×2 (10:54→22:48)
[2020-08-23] MEDS ORDERED: CefTRIAXone 1,000 MG VIAL ONE (15:46)
[2020-08-23] MEDS: cefTRIAXone 1,000 MG in Water for inj. (sterile) 10 ML IVP SCH (15:53)
[2020-08-23] MEDS: traZODone 50 MG TABLET PO SCH (19:54)
[2020-08-24] MEDS: Ipratropium 1 PUFF INHALER IH SCH ×4 (04:21→20:51)
[2020-08-24] MEDS: MethylPREDNISolone 40 MG/ML VIAL IVP SCH ×2 (05:36→17:43)
[2020-08-24 08:11] LABS: Basophils % 0.1 %; Hematocrit 32.9 % (37.5-50.1); Hemoglobin 9.8 g/dL (12.9-16.9); Immature Granulocytes % 0.6 % (0-4); Lymphocytes # 0.3 K/mcL (0.6-4.6); Lymphocytes % 3.5 %; Mean Corpuscular HGB Conc 29.8 g/dL (31.6-35.5); Mean Corpuscular Hemoglobin 23.6 pg (28.0-33.3); Mean Corpuscular Volume 79.3 fL (83.0-100.0); Mean Platelet Volume 9.9 fL (9.4-12.4); Monocytes # 0.5 K/mcL (0.0-1.3); Monocytes % 5.8 %; Neutrophils # 8.4 K/mcL (1.6-8.9); Platelet Count 241 K/mcL (140-400); Red Blood Count 4.15 M/mcL (4.19-5.50); White Blood Count 9.4 K/mcL (4.3-11.1)
[2020-08-24 08:31] LABS: Calcium 8.9 mg/dL (8.6-10.3); Magnesium 2.6 mg/dL (1.6-2.6); Potassium 4.4 mEq/L (3.5-5.1)
[2020-08-24] MEDS: Bumetanide 1 MG/4 ML VIAL IVP SCH ×2 (08:58→19:53)
[2020-08-24] MEDS: Apixaban 5 MG TABLET PO SCH ×2 (08:59→19:53)
[2020-08-24] MEDS: Aspirin Enteric Coated 81 MG Tablet PO SCH (08:59)
[2020-08-24] MEDS: Metoprolol XL (24 HR) Succ 25 MG TAB.ER.24H PO SCH (08:59)
[2020-08-24] MEDS: allopurinoL 100 MG TABLET PO SCH (08:59)
[2020-08-24] MEDS: Fluticasone Propionate Nasal 50 MCG/SPRAY BOTTLE NS SCH (09:05)
[2020-08-24] MEDS: Budesonide/Formoterol 160/4.5 1 PUFF INH IH SCH ×2 (11:26→20:51)
[2020-08-24] MEDS: traZODone 50 MG TABLET PO SCH (19:52)
[2020-08-25 02:07] LABS: Basophils % 0.1 %; Hematocrit 32.3 % (37.5-50.1); Hemoglobin 9.4 g/dL (12.9-16.9); Immature Granulocytes % 0.8 % (0-4); Lymphocytes # 0.3 K/mcL (0.6-4.6); Lymphocytes % 3.3 %; Mean Corpuscular HGB Conc 29.1 g/dL (31.6-35.5); Mean Corpuscular Hemoglobin 22.8 pg (28.0-33.3); Mean Corpuscular Volume 78.4 fL (83.0-100.0); Mean Platelet Volume 10.5 fL (9.4-12.4); Monocytes # 0.4 K/mcL (0.0-1.3); Monocytes % 4.9 %; Neutrophils # 7.7 K/mcL (1.6-8.9); Platelet Count 222 K/mcL (140-400); Red Blood Count 4.12 M/mcL (4.19-5.50); Red Cell Distribution Width 19.2 % (11.5-14.5); Segmented Neutrophils % 90.9 %; White Blood Count 8.5 K/mcL (4.3-11.1)
[2020-08-25 02:25] LABS: Calcium 8.5 mg/dL (8.6-10.3); Potassium 4.5 mEq/L (3.5-5.1)
[2020-08-25] MEDS: Ipratropium/Albuterol Neb 3 ML IH SCH ×6 (03:44→20:23)
[2020-08-25] MEDS: MethylPREDNISolone 40 MG/ML VIAL IVP SCH ×2 (05:32→17:20)
[2020-08-25] MEDS: Budesonide/Formoterol 160/4.5 1 PUFF INH IH SCH ×2 (07:53→23:20)
[2020-08-25] MEDS: Bumetanide 1 MG/4 ML VIAL IVP SCH ×2 (08:15→19:59)
[2020-08-25] MEDS: Aspirin Enteric Coated 81 MG Tablet PO SCH (08:15)
[2020-08-25] MEDS: Metoprolol XL (24 HR) Succ 25 MG TAB.ER.24H PO SCH (08:16)
[2020-08-25] MEDS: allopurinoL 100 MG TABLET PO SCH (08:16)
[2020-08-25] MEDS: Apixaban 5 MG TABLET PO SCH ×2 (08:16→19:59)
[2020-08-25] MEDS: Fluticasone Propionate Nasal 50 MCG/SPRAY BOTTLE NS SCH (08:21)
[2020-08-25 09:20] LABS: Magnesium 2.4 mg/dL (1.6-2.6); Phosphorous 3.4 mg/dL (2.7-4.5)
[2020-08-25] MEDS: Piperacillin/Tazobactam 3.375 GM in 0.9 % Sodium Chloride Mini Bag 100 ML IVPB SCH ×2 (10:59→17:20)
[2020-08-25] MEDS ORDERED: Perflutren Lipid Microsphere 1.3 ML in 0.9 % Sodium Chloride 8.7 ML IVP PRN (13:51)
[2020-08-25 16:39] LABS: Adenovirus Not Detected (Not Detect); Bordetella Pertussis Not Detected (Not Detect); Chlamydophila pneumoniae Not Detected (Not Detect); Coronavirus 229E Not Detected (Not Detect); Coronavirus HKU1 Not Detected (Not Detect); Coronavirus NL63 Not Detected (Not Detect); Coronavirus OC43 Not Detected (Not Detect); Human Metapneumovirus Not Detected (Not Detect); Human Rhinovirus/Enterovirus Not Detected (Not Detect); Influenza A Subtype 2009 H1 Not Detected (Not Detect); Influenza B Not Detected (Not Detect); Mycoplasma pneumoniae Not Detected (Not Detect); Parainfluenza Virus 1 Not Detected (Not Detect); Parainfluenza Virus 2 Not Detected (Not Detect); Parainfluenza Virus 3 Not Detected (Not Detect); Parainfluenza Virus 4 Not Detected (Not Detect); Respiratory Syncytial Virus Not Detected (Not Detect)
[2020-08-25 16:41] LABS: SARS-CoV-2 DETECTED (Not Detect)
[2020-08-25] MEDS ORDERED: Ipratropium/Albuterol Neb 3 ML IH SCH (21:13)
[2020-08-25] MEDS: traZODone 50 MG TABLET PO SCH (21:16)
[2020-08-25] MEDS: Ipratropium 1 PUFF INHALER IH SCH (23:20)
[2020-08-26] MEDS ORDERED: 0.9 % Sodium Chloride 250 ML ONE (00:12)
[2020-08-26] MEDS: Ipratropium 1 PUFF INHALER IH SCH ×4 (03:29→16:11)
[2020-08-26] MEDS: Piperacillin/Tazobactam 3.375 GM in 0.9 % Sodium Chloride Mini Bag 100 ML IVPB SCH (04:18)
[2020-08-26 05:45] LABS: Basophils % 0.2 %; Hematocrit 35.3 % (37.5-50.1); Hemoglobin 9.9 g/dL (12.9-16.9); Immature Granulocytes % 1.2 % (0-4); Lymphocytes # 0.3 K/mcL (0.6-4.6); Mean Corpuscular Hemoglobin 22.4 pg (28.0-33.3); Mean Corpuscular Volume 79.9 fL (83.0-100.0); Mean Platelet Volume 10.9 fL (9.4-12.4); Monocytes # 0.5 K/mcL (0.0-1.3); Monocytes % 5.3 %; Neutrophils # 9.2 K/mcL (1.6-8.9); Nucleated Red Blood Cells 0.2 /100 WBC (0); Platelet Count 242 K/mcL (140-400); Red Blood Count 4.42 M/mcL (4.19-5.50); Red Cell Distribution Width 19.5 % (11.5-14.5); Segmented Neutrophils % 90.3 %; White Blood Count 10.2 K/mcL (4.3-11.1)
[2020-08-26 05:56] LABS: Calcium 8.6 mg/dL (8.6-10.3)
[2020-08-26 06:15] LABS: Anisocytosis 1+ (Not Present); Hypochromasia Present (Not Present); Platelet Estimate Normal (Normal)
[2020-08-26] MEDS: MethylPREDNISolone 40 MG/ML VIAL IVP SCH (06:20)
[2020-08-26] MEDS: Metoprolol XL (24 HR) Succ 25 MG TAB.ER.24H PO SCH (08:04)
[2020-08-26] MEDS: Apixaban 5 MG TABLET PO SCH (08:04)
[2020-08-26] MEDS: allopurinoL 100 MG TABLET PO SCH (08:05)
[2020-08-26] MEDS: Aspirin Enteric Coated 81 MG Tablet PO SCH (08:05)
[2020-08-26] MEDS: Acetaminophen 325 MG TABLET PO PRN (08:09)
[2020-08-26] MEDS ORDERED: Dexamethasone Sodium Phos/PF 10 MG/ML VIAL IVP SCH (09:00)
[2020-08-26] MEDS ORDERED: Dexamethasone 4 MG/ML VIAL IVP SCH (09:00)
[2020-08-26] MEDS ORDERED: Furosemide 40 MG/4 ML VIAL IVP SCH (09:15)
[2020-08-26] MEDS: Fluticasone Propionate Nasal 50 MCG/SPRAY BOTTLE NS SCH (09:33)
[2020-08-26] MEDS ORDERED: Piperacillin/Tazobactam 3.375 GM in 0.9 % Sodium Chloride Mini Bag 100 ML IVPB SCH (13:00)
[2020-08-26] MEDS ORDERED: *HR* LORazepam 2 MG/ML VIAL IVP PRN (13:21)
[2020-08-26] MEDS ORDERED: Furosemide 100 MG in 0.9 % Sodium Chloride 50 ML IVPB ONE (14:26)
[2020-08-26 14:31] LABS: ABG Base Excess -4 mEq/L (-2 to 3); ABG HCO3 19 mEq/L (21-27); ABG Oxygen Saturation 82 % (95-98); ABG PCO2 27 mmHg (35-45); ABG PH 7.46 pH Units (7.32-7.45); ABG PO2 42 mmHg (85-104); ABG TCO2 20 mEq/L (20-26); Blood Gas Modality BiLevel; Blood Gas Pressure Support 6 cm H2O
[2020-08-26 20:29] VITALS: BP 86/52
== END 2020-08-26 20:32 | disposition expired | DRG 871 ==
LOC: 2ANU 14:00 → EMEROOARM 14:00 → 2ANU 21:25 → SUATTDRO 08-20 09:43 → 2NENU 08-25 19:38
PROVIDERS: ADMIT Family Medicine; ATTEND Family Medicine